=== PATIENT | female | born 1960 | race African-American/Black ===

== ENCOUNTER 2017-02-03 18:07 | Emergency (ER) | payer OTHER ==
[2017-02-03 18:12] VITALS: TEMP 98.6; BMI 32.0
--- NOTE | 2017-02-03 18:34 | PDOC ---
History of Present Illness - General History Source: Patient Exam Limitations: No Limitations - History of Present Illness Initial Comments: 02/03/17 18:40 The patient is 56 year old female with a significant past medical history of vertigo, intermittent hypertension and glaucoma who presents to the ED with complaints of dizziness since yesterday morning. The patient reports a sudden onset of dizziness around 7 am yesterday morning. She notes her dizziness is worsened when she moves her head or stands up too quickly. She reports her symptoms are similar to her history of vertigo. Patient states she has struggled with vertigo for the past 15 years. Patient notes that her vertigo has worsened when she is overly tired in the past 2 years secondary to a hysterectomy. She states she went to a prayer service from 9pm-6am on Saturday night which she attributes as the cause of her present symptoms. The patient also notes that her blood pressure typically becomes elevated secondary to vertigo and reports it was 180/118 at work earlier today. She reports taking 25 mg of meclizine at 3:30 pm earlier today with slight relief of present symptoms. Denies focal weakness/numbness/tingling. Denies headache or changes in vision. Denies chest pain or shortness of breath. Denies any other symptoms. Surgical hx: hysterectomy (2 years ago), Pterygium surgery Social hx: The patient works at a [employer]. <Walter Rodney - Last Filed: 02/03/17 18:40> <Louis Fuentes - Last Filed: 02/03/17 19:37> - General Chief Complaint: Blood Pressure Problem Stated Complaint: HIGH BP Time Seen by Provider: 02/03/17 18:09 Past History <Walter Rodney - Last Filed: 02/03/17 18:40> - Past Medical History Other medical history: VERTIGO - Psycho/Social/Smoking Cessation Hx Anxiety: No Suicidal Ideation: No Smoking History: Never smoked Have you smoked in the past 12 months: No Hx Alcohol Use: No Drug/Substance Use Hx: No Substance Use Type: None <Louis Fuentes - Last Filed: 02/03/17 19:37> - Past Medical History Allergies/Adverse Reactions: Allergies Allergy/AdvReac Type Severity Reaction Status Date / Time No Known Allergies Allergy Verified 02/03/17 18:08 Home Medications: Ambulatory Orders Timolol 0.25% [Timoptic 0.25%] 5 ml OU DAILY 12/06/15 Meclizine HCl 12.5 mg PO ASDIR 08/18/16 Review of Systems - Review of Systems Able to Perform ROS?: Yes Comments:: 02/03/17 18:45 CONSTITUTIONAL: Absent: Fever, Chills, Diaphoresis, Generalized Weakness, Malaise, Loss of Appetite HEENT: Absent: Rhinorrhea, Nasal Congestion, Throat Pain, Throat Swelling, Difficulty Swallowing, Mouth Swelling, Ear Pain, Eye Pain, Visual Changes CARDIOVASCULAR: + hypertension Absent: Chest Pain, Syncope, Palpitations, Lightheadedness, Peripheral Edema RESPIRATORY: Absent: Cough, Shortness of Breath, SOB with Exertion, Orthopnea, Wheezing, Stridor, Hemoptysis GASTROINTESTINAL: Absent: Abdominal pain, Abdominal Distension, Nausea, Vomiting, Diarrhea, Constipation, Melena, Hematochezia GENITOURINARY: Absent: Dysuria, Frequency, Urgency, Hesitancy, Flank Pain, Genital Pain MUSCULOSKELETAL: Absent: Myalgia, Arthralgia, Joint Swelling, Back pain, Neck Pain SKIN: Absent: Rash, Itching, PalloR HEMEATOLOGIC/IMMUNOLOGIC: Absent: Easy Bleeding, Easy Bruising, Lymphadenopathy, Frequent infections ENDOCRINE: Absent: Unexplained Weight Gain, Unexplained Weight Loss, Heat Intolerance, Cold Intolerance NEUROLOGIC: + vertigo Absent: Headache, Focal Weakness, Paresthesias, Lightheadedness, Unsteady Gait, Seizure, Mental Status Changes, Incontinence PSYCHIATRIC: Absent: Anxiety, Depression All Other Systems: Reviewed and Negative <Walter Rodney - Last Filed: 02/03/17 18:40> *Physical Exam - Vital Signs Last Vital Signs Temp Pulse Resp BP Pulse Ox 98.6 F 68 18 183/108 100 02/03/17 18:08 02/03/17 18:08 02/03/17 18:08 02/03/17 18:08 02/03/17 18:08 - Physical Exam Comments: 02/03/17 18:[address] repeated by Dr[address] Fuentes: Left arm, 174/83. Right arm, 180/99 GENERAL: The patient is awake, alert, and fully oriented, in no acute distress. HEAD: Normal with no signs of trauma. EYES: Pupils equal, round and reactive to light, extraocular movements intact, sclera anicteric, conjunctiva clear. ENT: Ears normal, nares patent, oropharynx clear without exudates. Moist mucous membranes. NECK: Normal range of motion, supple without lymphadenopathy, JVD, or masses. LUNGS: Breath sounds equal, clear to auscultation bilaterally. No wheezes, and no crackles. HEART: Regular rate and rhythm, normal S1 and S2 without murmur, rub or gallop. ABDOMEN: Soft, nontender, normoactive bowel sounds. No guarding, no rebound. No masses. EXTREMITIES: Normal range of motion, no edema. No clubbing or cyanosis. No cords , erythema, or tenderness. NEUROLOGICAL: Mental status: The patient is alert and oriented x3. Cranial nerves: Cranial nerves II through XII are intact Motor: The upper extremities are 5 over 5 in all muscle groups. The lower extremities are 5 over 5 in all muscle groups. No pronator drift. Sensation: Sensation is intact to light touch throughout. Cerebellar: Vovzsy-ilggit-sxiq is normal in both upper extremities. Heel-knee- morrison is normal in both lower extremities. Reflexes: 2+ and symmetric in the upper and lower extremities. Gait: Normal. Heel and toe walking are normal. Tandem gait is normal. PSYCH: Normal mood, normal affect. SKIN: Warm, Dry, normal turgor, no rashes or lesions noted. <Walter Rodney - Last Filed: 02/03/17 18:40> - Vital Signs Last Vital Signs Temp Pulse Resp BP Pulse Ox 98.6 F 68 18 183/108 100 02/03/17 18:08 02/03/17 18:08 02/03/17 18:08 02/03/17 18:08 02/03/17 18:08 <Louis Fuentes - Last Filed: 02/03/17 19:37> Heart Score/ECG Review - ECG Intrepretation Comment:: 02/03/17 19:31 Twelve-lead EKG shows normal sinus rhythm at a rate of 61 bpm. The axis is normal. The intervals are normal. There are T wave inversions in the inferior and lateral leads. There is no old EKG for comparison. Impression: Normal sinus rhythm with lateral T-wave inversions of uncertain duration and etiology. <Louis Fuentes - Last Filed: 04/02/17 19:37> ED Treatment Course - LABORATORY CBC & Chemistry Diagram: 02/03/17 18:33 02/03/17 18:33 <Louis Fuentes - Last Filed: 02/03/17 19:37> Medical Decision Making - Medical Decision Making 02/03/17 19:32 Patient is a 56-year-old woman with a history of chronic vertigo and dizziness. She states she gets occasional episodes of hypertension, usually precipitated by sleep deprivation and dizziness. When she goes to her primary physician for follow-up, her pressures back to the 130s over 80. She has never been started on antihypertensives given that these episodes of hypertension are brief and intermittent. On Saturday night she stayed up all night for a caodaism prayer service. In the setting of the sleep deprivation, she again got symptoms of dizziness. Today at work she was not feeling well and she checked her pressure and it was very elevated. After coming to the ED, she states her symptoms have improved, and her blood pressures steadily coming down to normal. She denies having any chest pain or shortness of breath at any time. The dizziness and vertigo is described as related to movement of the head and change in position. There are no other neurological symptoms. There is no numbness or weakness. There is no speech change. There is no difficulty swallowing. There has been no chest pain and no shortness of breath. Physical examination was unremarkable. Thorough, detailed neurological examination is also normal. Twelve-lead EKG shows nonspecific inferior and lateral T-wave inversions without an old EKG for comparison. Initial cardiac enzymes show normal troponin. Total CK is elevated with fractionation pending. Impression: Given that the symptoms are very typical for the patient with classic vertigo, normal neuro exam, the likelihood that this is acute coronary syndrome is quite low. Patient will have serial enzymes and serial EKGs prior to discharge. She has been seen by a film laboratory technician in the past for abnormal EKG. If all of the workup is negative with repeat EKG and enzymes, she will follow-up in outpatient with the film laboratory technician this week Patient endorsed to Dr. Gilmer Souza at 7 PM change of shift. 02/03/17 19:36 The scribe's documentation has been prepared under my direction and personally reviewed by me in its entirety. I have confirmed that the note above accurately reflects all work, treatment, procedures, and medical decision- making performed by me. <Louis Fuentes - Last Filed: 02/03/17 19:37> *DC/Admit/Observation/Transfer - Attestations Scribe Attestion: 02/03/17 18:58 Documentation prepared by Walter Rodney, acting as spanish medical interpreter for Louis Fuentes MD <Walter Rodney - Last Filed: 02/03/17 18:40> <Louis Fuentes - Last Filed: 02/03/17 19:37> Diagnosis at time of Disposition: Peripheral vertigo Qualifiers: Laterality: unspecified laterality Qualified Code(s): H81.399 - Other peripheral vertigo, unspecified ear - Discharge Dispostion Condition at time of disposition: Stable
[2017-02-03 18:55] VITALS: PULSE 61
[2017-02-03 18:57] LABS: MCH 24.8 pg (25.7-33.7); MEAN CELL VOLUME 75.3 fl (80-96); MEAN PLT VOLUME 11.9 fl (7.5-11.1); PLATELET COUNT 165 K/MM3 (134-434); RDW 18.5 % (11.6-15.6); WHITE BLOOD COUNT 5.4 K/mm3 (4.0-10.0)
[2017-02-03 19:10] LABS: ALK PHOS 94 U/L (32-92); ANION GAP 5 (8-16); CO2 25 mmol/L (22-28); CPK(DFH) 192 IU/L (26-140); CREATININE 0.8 mg/dl (0.6-1.3); GLUCOSE,RANDOM 121 mg/dl (74-106); SGOT/AST 31 U/L (10-42); SGPT/ALT 20 U/L (10-40); TOT PROT 6.2 g/dl (6.4-8.3)
[2017-02-03 19:16] LABS: ANISOCYTOSIS 2+; HYPOCHROMIA 1+
[2017-02-03 19:22] VITALS: BP 154/84
[2017-02-03 19:22] LABS: TROPONIN I (DFP) < 0.03 ng/ml (0.03-0.50)
[2017-02-03 19:27] LABS: BILIRUBIN,TOTAL 0.4 mg/dl (0.2-1.0)
[2017-02-03 19:51] LABS: CK MB 2.6 ng/ml (0.3-4.0)
[2017-02-03 21:30] LABS: CPK(DFH) 193 IU/L (26-140)
[2017-02-03 21:47] LABS: TROPONIN I (DFP) < 0.03 ng/ml (0.03-0.50)
--- NOTE | 2017-02-03 21:57 | PDOC ---
[id number]: HIGH BP Time Seen by Provider: 02/03/17 18:09 Past History - Past Medical History Allergies/Adverse Reactions: Allergies Allergy/AdvReac Type Severity Reaction Status Date / Time No Known Allergies Allergy Verified 02/03/17 18:08 Home Medications: Ambulatory Orders Timolol 0.25% [Timoptic 0.25%] 5 ml OU DAILY 12/06/15 Meclizine HCl 12.5 mg PO ASDIR 08/18/16 Ondansetron HCl [Zofran] 4 mg PO TID PRN #12 tablet 02/03/17 Other medical history: VERTIGO - Psycho/Social/Smoking Cessation Hx Anxiety: No Suicidal Ideation: No Smoking History: Never smoked Have you smoked in the past 12 months: No Hx Alcohol Use: No Drug/Substance Use Hx: No Substance Use Type: None *Physical Exam - Vital Signs Last Vital Signs Temp Pulse Resp BP Pulse Ox 98.6 F 61 18 154/84 100 02/03/17 18:08 02/03/17 18:55 02/03/17 18:08 02/03/17 19:21 02/03/17 18:08 ED Treatment Course - LABORATORY CBC & Chemistry Diagram: 02/03/17 18:33 02/03/17 18:33 - ADDITIONAL ORDERS Additional order review: Laboratory Results 02/03/17 02/03/17 02/03/17 21:05 18:33 18:33 Sodium 135 L Potassium 3.6 Chloride 105 Carbon Dioxide 25 Anion Gap 5 L BUN 16 Creatinine 0.8 Creat Clearance w eGFR > 60 Random Glucose 121 H D Calcium 9.0 Total Bilirubin 0.4 D AST 31 D ALT 20 D Alkaline Phosphatase 94 H Creatine Kinase 193 H 192 H CK-MB (CK-2) 2.6 Troponin I < 0.03 L < 0.03 L Total Protein 6.2 L Albumin 4.0 02/03/17 18:33 RBC 4.71 MCV 75.3 L MCHC 33.0 RDW 18.5 H MPV 11.9 H Neutrophils % 52.0 Lymphocytes % 35.0 Monocytes % 7.0 Eosinophils % 2.0 D Medical Decision Making - Medical Decision Making 02/11/17 05:12 trop - x 2 no recurrence of symptoms no events on monitor *DC/Admit/Observation/Transfer Diagnosis at time of Disposition: Peripheral vertigo Qualifiers: Laterality: unspecified laterality Qualified Code(s): H81.399 - Other peripheral vertigo, unspecified ear - Discharge Dispostion Disposition: HOME Condition at time of disposition: Stable - Prescriptions Prescriptions: Ondansetron HCl [Zofran] 4 mg PO TID PRN #12 tablet PRN Reason: Nausea - Patient Instructions Printed Discharge Instructions: DI for High Blood Pressure Additional Instructions: Please followup with your doctor - Post Discharge Activity Work/School Note: Back to Work
[2017-02-03 22:06] LABS: CK MB 2.5 ng/ml (0.3-4.0)
--- NOTE | 2017-02-04 18:00 | EKG ---
Test Reason : Blood Pressure : / mmHG Vent. Rate : 072 BPM Atrial Rate : 072 BPM P-R Int : 152 ms QRS Dur : 074 ms QT Int : 400 ms P-R-T Axes : 053 050 -86 degrees QTc Int : 438 ms NORMAL SINUS RHYTHM POSSIBLE LEFT ATRIAL ENLARGEMENT WHEN COMPARED WITH ECG OF 03-FEB-2017 18:44, NO SIGNIFICANT CHANGE WAS FOUND Confirmed by MD AC MARJORY ([id number]) on 02/04/2017 6:00:00 PM Referred By: YAHIR BOYD Confirmed By:JESSICA AC MD
--- NOTE | 2017-02-04 18:00 | EKG ---
Test Reason : Blood Pressure : / mmHG Vent. Rate : 061 BPM Atrial Rate : 061 BPM P-R Int : 162 ms QRS Dur : 074 ms QT Int : 458 ms P-R-T Axes : 004 041 -84 degrees QTc Int : 461 ms NORMAL SINUS RHYTHM T WAVE ABNORMALITY, CONSIDER INFEROLATERAL ISCHEMIA NO PREVIOUS ECGS AVAILABLE Confirmed by MD YASHIRA, JESSICA ([id number]) on 02/04/2017 6:00:17 PM Referred By: ZEB STORY Confirmed By:JESSICA AC MD
== END 2017-02-03 22:10 | disposition home or self-care (01) ==
LOC: FER 18:07
DX: H81.399 Other peripheral vertigo, unspecified ear (principal); I10 Essential (primary) hypertension
CPT/HCPCS: 36415; 80053; 82550; 82553; 84484; 85025; 93005; 93010; 99283-25

== ENCOUNTER 2017-04-11 05:06 | Emergency (ER) | payer OTHER ==
[2017-04-11 05:12] VITALS: BP 156/85; PULSE 68; TEMP 98.4; BMI 30.9
[2017-04-11] MEDS ORDERED: ALBUTEROL SO4 2.5/IPRATROPIUM 0.5 INH SOL 3 ML VIAL.NEB. NEB ONE ×2 (05:44)
--- NOTE | 2017-04-11 05:44 | PDOC ---
History of Present Illness - General Chief Complaint: Cold Symptoms Stated Complaint: COUGH Time Seen by Provider: 04/11/17 05:23 - History of Present Illness Initial Comments: This 56-year-old woman presents with nonproductive cough for the last 3 days. Patient has no specific history of asthma although she states that she has intermittent wheezing when she has chest colds. Last night, patient states that she thought she heard wheezing. She has had subjective fever yesterday ( temperature not measured). Other than very mild throat discomfort at the start of the illness, she has had no other associated symptoms. No recent travel; no exposure to tobacco smoke. Patient has no previous history of smoking. Patient works in a halfway Past History - Past Medical History Allergies/Adverse Reactions: Allergies Allergy/AdvReac Type Severity Reaction Status Date / Time No Known Allergies Allergy Verified 02/03/17 18:08 Home Medications: Ambulatory Orders Timolol 0.25% [Timoptic 0.25%] 5 ml OU DAILY 12/06/15 Meclizine HCl 12.5 mg PO ASDIR 08/18/16 Ondansetron HCl [Zofran] 4 mg PO TID PRN #12 tablet 02/03/17 Albuterol Sulfate Inhaler - [Ventolin HFA Inhaler -] 2 inh PO Q6H PRN #1 inh 06/20 Azithromycin [Zithromax 250mg Tablets -] 250 mg PO UTDICT #6 tab 04/11/17 Guaifenesin Dm [Robitussin Dm] 10 ml PO Q4H PRN #1 bottle 04/11/17 Asthma: Yes - Psycho/Social/Smoking Cessation Hx Anxiety: No Suicidal Ideation: No Smoking History: Unknown if ever smoked Have you smoked in the past 12 months: No Number of Cigarettes Smoked Daily: 0 Information on smoking cessation initiated: No Hx Alcohol Use: No Drug/Substance Use Hx: No Substance Use Type: None Review of Systems - Review of Systems Able to Perform ROS?: Yes Comments:: 12 point review of systems is negative except for what is noted in the history of present illness *Physical Exam - Vital Signs Last Vital Signs Temp Pulse Resp BP Pulse Ox 98.4 F 68 14 156/85 95 04/11/17 05:10 04/11/17 05:10 04/11/17 05:10 04/11/17 05:10 04/11/17 05:10 - Physical Exam Comments: GENERAL: The patient is awake, alert, and fully oriented, in no acute distress. Frequent coughing Vital signs as noted. HEAD: Normal with no signs of trauma. EYES: Pupils equal, round and reactive to light, extraocular movements intact, sclera anicteric, conjunctiva clear with no pallor. ENT: moist mucous membranes. Ears normal, nares patent, oropharynx clear without exudates. NECK: Normal range of motion, supple without lymphadenopathy, JVD, or masses. LUNGS: Breath sounds equal, scattered expiratory wheezing bilaterally; moving air well HEART: Regular rate and rhythm, normal S1 and S2 without murmur or rub. ABDOMEN: Soft/nontender/nondistended. BS wnl. No guarding or rebound. No palpable masses. No hepatosplenomegaly. EXTREMITIES: Normal range of motion, no edema. No clubbing or cyanosis. No cords, erythema, or tenderness. NEUROLOGICAL: Cranial nerves II through XII grossly intact. Normal speech, normal gait. PSYCH: Normal mood, normal affect. SKIN: Warm, Dry, normal turgor, no rashes or lesions noted. *DC/Admit/Observation/Transfer Diagnosis at time of Disposition: Acute bronchitis Qualifiers: Bronchitis organism: unspecified organism Qualified Code(s): J20.9 - Acute bronchitis, unspecified - Discharge Dispostion Disposition: HOME Condition at time of disposition: Stable - Prescriptions Prescriptions: Guaifenesin Dm [Robitussin Dm] 10 ml PO Q4H PRN #1 bottle PRN Reason: Cough Albuterol Sulfate Inhaler - [Ventolin HFA Inhaler -] 2 inh PO Q6H PRN #1 inh PRN Reason: Wheezing Azithromycin [Zithromax 250mg Tablets -] 250 mg PO UTDICT #6 tab - Patient Instructions Printed Discharge Instructions: DI for Acute Bronchitis Additional Instructions: Rest; no work today Drink plenty of fluids; can use a vaporizer in room at night ArgentinaZ-Chet; take as directed Albuterol inhaler 2 puffs every 6 hours as needed for wheezing Robitussin DM as needed for persisting coughing Return to ER if you have fever/productive cough/shortness of breath/persistent wheezing Follow-up with your doctor within the next 5 days - Post Discharge Activity Work/School Note: Back to Work
== END 2017-04-11 06:12 | disposition home or self-care (01) ==
LOC: FER 05:06
PROC: 3E0F7GC Introduction of Other Therapeutic Substance into Respiratory Tract, Via Natural or Artificial Opening (ICD-10-PCS; principal; 2017-04-11)
DX: J20.9 Acute bronchitis, unspecified (principal); J45.901 Unspecified asthma with (acute) exacerbation
CPT/HCPCS: 99282-25

== ENCOUNTER 2018-09-27 16:49 | Emergency (ER) | payer OTHER ==
[2018-09-27] MEDS ORDERED: ALBUTEROL SO4 2.5/IPRATROPIUM 0.5 INH SOL 3 ML VIAL.NEB. NEB ONE ×2 (17:16→17:30)
[2018-09-27] MEDS ORDERED: predniSONE 20 MG TABLET (UD) ONE (17:30)
[2018-09-27 17:36] VITALS: TEMP 98.4; BMI 30.9
[2018-09-27] MEDS ORDERED: predniSONE 20 MG TABLET (UD) PO ONE ×2 (17:39→17:40)
[2018-09-27 17:47] LABS: HEMATOCRIT 39.4 % (32.4-45.2); HEMOGLOBIN 12.9 GM/dl (10.7-15.3); MCH 26.7 pg (25.7-33.7); MCHC 32.7 g/dl (32.0-36.0); MEAN CELL VOLUME 81.6 fl (80-96); PLATELET COUNT 179 K/MM3 (134-434); RBC 4.83 M/mm3 (3.60-5.2); RDW 16.8 % (11.6-15.6); WHITE BLOOD COUNT 9.2 K/mm3 (4.0-10.8)
[2018-09-27 17:51] LABS: ALBUMIN 4.3 g/dl (3.5-5.0); ALK PHOS 133 U/L (32-92); ANION GAP 7 MMOL/L (8-16); BILIRUBIN,TOTAL 0.4 mg/dl (0.2-1.0); BLOOD UREA NITROGEN 14 mg/dl (7-18); CHLORIDE 103 mmol/L (98-107); CO2 27 mmol/L (22-28); CREATININE 0.6 mg/dl (0.6-1.3); GLUCOSE,RANDOM 103 mg/dl (74-106); POTASSIUM 3.9 mmol/L (3.5-5.1); SGOT/AST 35 U/L (10-42); SGPT/ALT 41 U/L (10-40); SODIUM 137 mmol/L (136-145); TOT PROT 7.3 g/dl (6.4-8.3)
--- NOTE | 2018-09-27 17:55 | PDOC ---
History of Present Illness - General Chief Complaint: Cold Symptoms Stated Complaint: IM SICK FOR 2 WEEKS Time Seen by Provider: 09/27/18 17:06 History Source: Patient Exam Limitations: No Limitations - History of Present Illness Initial Comments: 09/27/18 17:49 58F with pmh of asthma presents to the ED with productive cough for the past 2 week. Says she is coughing mucus that is yellow in color. Also complains of chest pain when coughing. [place] chills last night and took Nyquil to help her sleep (which didn't work) but didn't take anything today. Had to leave work. Got vaccinated for the flu 2 weeks ago. Denies sore throat, chest pain. No one else sick at home. 09/27/18 17:53 Past History - Past Medical History Allergies/Adverse Reactions: Allergies Allergy/AdvReac Type Severity Reaction Status Date / Time No Known Allergies Allergy Verified 09/27/18 16:51 Home Medications: Ambulatory Orders Amlodipine Besylate 10 mg PO DAILY 09/27/18 Timolol 0.25% [Timoptic 0.25%] 1 drop OU DAILY 09/27/18 Asthma: Yes COPD: No HTN: Yes Hypercholesterolemia: Yes - Suicide/Smoking/Psychosocial Hx Smoking History: Never smoked Have you smoked in the past 12 months: No Number of Cigarettes Smoked Daily: 0 Information on smoking cessation initiated: No Hx Alcohol Use: Yes (RARE) Drug/Substance Use Hx: No Substance Use Type: Alcohol Review of Systems - Review of Systems Able to Perform ROS?: Yes Constitutional: No: Symptoms Reported HEENTM: Yes: Nose Congestion Respiratory: Yes: See HPI, Productive cough Cardiac (ROS): Yes: Chest Pain ABD/GI: No: Symptoms Reported : No: Symptoms Reported Musculoskeletal: No: Symptoms Reported Integumentary: No: Symptoms Reported Neurological: No: Symptoms reported All Other Systems: Reviewed and Negative *Physical Exam - Vital Signs Last Vital Signs Temp Pulse Resp BP Pulse Ox 98.4 F 92 H 20 184/110 H 98 09/27/18 16:50 09/27/18 16:50 09/27/18 16:50 09/27/18 16:50 09/27/18 16:50 - Physical Exam General Appearance: Yes: Nourished, Appropriately Dressed. No: Apparent Distress HEENT: positive: EOMI, CICI, Nasal Congestion, Rhinorrhea Neck: negative: Tender Respiratory/Chest: positive: Crackles. negative: Chest Tender, Respiratory Distress Cardiovascular: positive: Regular Rhythm, Regular Rate, S1, S2 Gastrointestinal/Abdominal: positive: Normal Bowel Sounds, Flat, Soft. negative : Tender Musculoskeletal: positive: Normal Inspection. negative: CVA Tenderness Extremity: positive: Normal Capillary Refill, Normal Inspection, Normal Range of Motion Integumentary: positive: Normal Color, Dry, Warm. negative: Cold, Clammy, Diaphoresis Neurologic: positive: Fully Oriented, Alert, Normal Mood/Affect, Normal Response , Motor Strength 03/08 ED Treatment Course - LABORATORY CBC & Chemistry Diagram: 09/27/18 17:20 09/27/18 17:20 - RADIOLOGY Radiology Studies Ordered: Category Date Time Status CHEST PA & LAT [RAD] Stat Radiology 09/27/18 17:04 Ordered - Medications Given in the ED: ED Medications Discontinued Medications Generic Name Dose Route Start Last Admin Trade Name Freq PRN Reason Stop Dose Admin Albuterol/Ipratropium 1 amp 09/27/18 17:16 09/27/18 17:35 Duoneb - NEB 09/27/18 17:17 1 amp ONCE ONE Administration Prednisone 50 mg 09/27/18 17:40 09/27/18 17:41 Deltasone - PO 09/27/18 17:41 50 mg NOW ONE Administration Medical Decision Making - Medical Decision Making 09/27/18 17:56 pneumonia vs URi Afebrile, non-tachy, saturating well. Will get cxr and labs. Because of patient';s hx of asthma we will also treat sob with duonebs. Trops to r/o AK. 09/27/18 18:52 EKG same as previous one on record with inverted t waves in lateral and inferior leads. Ok to d/c with symptomatic treatment. *DC/Admit/Observation/Transfer Diagnosis at time of Disposition: URI (upper respiratory infection) - Discharge Dispostion Disposition: HOME Condition at time of disposition: Stable Decision to Admit order: No - Referrals - Patient Instructions Printed Discharge Instructions: How to Avoid a Cold or Flu, DI for Viral Upper Respiratory Infection -- Adult Additional Instructions: Follow up with your primaryt care provider within 5 days. Come back to the Emergency department for any new, worsening or concerning symptom. - Post Discharge Activity Forms/Work/School Notes: Back to Work
--- NOTE | 2018-09-27 18:13 | PDOC ---
Attending Attestation - Resident Resident Name: ZhengJoe - ED Attending Attestation I have performed the following: I have examined & evaluated the patient, The case was reviewed & discussed with the resident, I agree w/resident's findings & plan, Exceptions are as noted - HPI HPI: 09/27/18 18:07 58yo F hx asthma (no admissions, no intubations, Albuterol PRN) presents to the ED with 2 weeks of cough, sob and chest tightness. Pt states this feels like her asthma. Has tried her albuterol pump with no improvement. Also reports subjective fevers. Tried emergen-C and nyquil for her symptoms with no improvement. Pt relates her symptoms to getting her flu shot 2 weeks ago. Pt had same day arthroscopic surgery 3 weeks ago, no overnight stays. Denies constant CP, states pain only when she coughs. Does not take hormones. Denies headaches, sore throat, stiff neck, weakness/numbness, abd pain, N/V/D, LE edema , calf pain. Pt works in a senior living and thus +sick contacts. - Physicial Exam PE: 09/27/18 18:13 GENERAL: Awake, alert, and fully oriented, in no acute distress. Frequent dry non-productive cough EYES: PERRLA, EOMI, sclera anicteric, conjunctiva clear ENT: Auricles normal inspection, hearing grossly normal, nares patent, oropharynx clear without exudates, no tonsillar edema. Moist mucosa NECK: Normal ROM, supple, no lymphadenopathy, JVD, or masses LUNGS: Breath sounds equal, clear to auscultation bilaterally. No wheezes, and no crackles HEART: Regular rate and rhythm, normal S1 and S2, no murmurs, rubs or gallops ABDOMEN: Soft, nontender, normoactive bowel sounds. No guarding, no rebound. No masses EXTREMITIES: Normal range of motion, no edema. No cords, erythema, or tenderness NEUROLOGICAL: Normal speech, cranial nerves intact, 5/5 strength in all 4 extremities, normal sensation to light touch in all 4 extremities, normal gait SKIN: Warm, Dry, normal turgor, no rashes or lesions noted. - Medical Decision Making 09/27/18 18:14 58yo F hx asthma presents to the ED with subjective fever, cough, SOB, CP that she states feels like her asthma. Exam with good BS, no wheezing although this is after duoneb. Pt states she feels better already. Will check basic labs, trop given duration og sxs for 2 weeks and reassess. 09/27/18 19:00 Pt feels significant improved after nebs. CXR clear. Labs negative Requests DC home I discussed the physical exam findings, ancillary test results and final diagnoses with the patient. I answered all of the patient's questions. The patient was satisfied with the care received and felt comfortable with the discharge plan and treatment plan. The patient will call their primary care physician within 24 hours to arrange follow-up and will return to the Emergency Department with any new, persistent or worsening symptoms. Heart Score/ECG Review #1 09/27/18 18:34 Twelve-lead EKG was performed and reviewed by me. Normal sinus rhythm, rate 70. Normal axis. No ST elevations. T wave inversions in leads 1, 2, 3, aVF, V5-V6. No significant changes compared to EKG from 02/03/2017.
[2018-09-27 18:41] VITALS: BP 139/92; PULSE 75
--- NOTE | 2018-09-28 13:46 | EKG ---
Test Reason : Blood Pressure : / mmHG Vent. Rate : 070 BPM Atrial Rate : 070 BPM P-R Int : 160 ms QRS Dur : 084 ms QT Int : 416 ms P-R-T Axes : 048 050 144 degrees QTc Int : 449 ms NORMAL SINUS RHYTHM NONSPECIFIC ST AND T WAVE ABNORMALITY ABNORMAL ECG WHEN COMPARED WITH ECG OF 03-FEB-2017 21:10, NO SIGNIFICANT CHANGE WAS FOUND Confirmed by JULIANA SANCHEZ MD ([id number]) on 09/28/2018 1:45:42 PM Referred By: YON Confirmed By:JULIANA SANCHEZ MD
[2018-09-28] MEDS ORDERED: predniSONE 20 MG TABLET (UD) PO ONE (17:17)
== END 2018-09-27 19:01 | disposition home or self-care (01) ==
LOC: FER 16:49
PROC: 3E0F7GC Introduction of Other Therapeutic Substance into Respiratory Tract, Via Natural or Artificial Opening (ICD-10-PCS; principal; 2018-09-27)
DX: J06.9 Acute upper respiratory infection, unspecified (principal); I10 Essential (primary) hypertension; J45.909 Unspecified asthma, uncomplicated; E78.00 Pure hypercholesterolemia, unspecified
CPT/HCPCS: 36415; 71046-TC-FY; 80053; 84484; 85027; 93005; 99282-25